=== PATIENT | female | born 1965 | race African-American/Black ===

== ENCOUNTER 2018-06-12 07:57 | Emergency (ER) | payer OTHER ==
[~2018-06-12] VITALS: Ht 162.6 cm; Wt 59.0 kg
[2018-06-12] MEDS ORDERED: NOHOMEMEDICATIONS (08:12)
[2018-06-12] MEDS ORDERED: NORCO 5-325 TA1 EACH PO (08:36)
[2018-06-12 09:57] VITALS: BP 116/83
== END 2018-06-12 09:35 | disposition home or self-care (01) ==
LOC: ER 07:57
DX: S52.502A Unspecified fracture of the lower end of left radius, initial encounter for closed fracture (principal); Z88.1 Allergy status to other antibiotic agents; Z91.040 Latex allergy status; Z88.0 Allergy status to penicillin; W18.39XA Other fall on same level, initial encounter; Y92.481 Parking lot as the place of occurrence of the external cause; Y93.89 Activity, other specified; Y99.8 Other external cause status